=== PATIENT | male | born 1955 | race Caucasian/White ===

== ENCOUNTER 2018-04-27 10:50 | Outpatient (CLI) | payer OTHER | END 2018-04-27 10:59 | disposition home or self-care (01) | LOC: LAB 10:50 | DX: D64.89 Other specified anemias (principal); D68.8 Other specified coagulation defects; E03.8 Other specified hypothyroidism; R07.1 Chest pain on breathing ==

== ENCOUNTER 2018-05-10 08:30 | Inpatient (IN) | payer OTHER ==
[~2018-05-10] VITALS: Ht 175.3 cm; Wt 90.7 kg
[2018-05-10] MEDS ORDERED: GABAPENTIN600 MG PO (10:52)
[2018-05-10] MEDS ORDERED: ETODOLAC600 MG PO (10:52)
[2018-05-10] MEDS ORDERED: GABAPENTIN400 MG PO (10:53)
[2018-05-10] MEDS ORDERED: BICALUTAMIDE50 MG PO (10:53)
[2018-05-10] MEDS ORDERED: ENALAPRIL MALEA20 MG PO (10:54)
[2018-05-10] MEDS ORDERED: SYNTHROID75 MCG PO (10:54)
[2018-05-10] MEDS ORDERED: ZOCOR40 MG PO (10:54)
[2018-05-10] MEDS ORDERED: TRAZODONE HCL50 MG PO (10:55)
[2018-05-10] MEDS ORDERED: HYDROXYZINE PO (10:56)
[2018-05-17] MEDS ORDERED: VISTARIL25 MG PO (09:41)
[2018-05-18] MEDS ORDERED: DOCUSATE SODIU100 MG PO (09:46)
[2018-05-18] MEDS ORDERED: GABAPENTIN800 MG PO (09:46)
[2018-05-18] MEDS ORDERED: AMOX-CLAV 875-1 EACH PO (09:47)
[2018-05-18] MEDS ORDERED: PERCOCET 5-3251 EACH PO (09:48)
[2018-05-18] MEDS ORDERED: CLONAZEPAM1 MG PO (09:48)
== END 2018-05-18 13:35 | disposition home or self-care (01) | DRG 455 ==
LOC: EDUNIT# 08:30 → SURG 05-17 05:50 → O/R 05-17 05:50 → SURG 05-17 13:59
PROVIDERS: Orthopaedic Surgery Orthopaedic Surgery of the Spine
PROC: 0SG0071 Fusion of Lumbar Vertebral Joint with Autologous Tissue Substitute, Posterior Approach, Posterior Column, Open Approach (ICD-10-PCS; 2018-05-17)
PROC: 0ST20ZZ Resection of Lumbar Vertebral Disc, Open Approach (ICD-10-PCS; 2018-05-17)
PROC: 0SG00AJ Fusion of Lumbar Vertebral Joint with Interbody Fusion Device, Posterior Approach, Anterior Column, Open Approach (ICD-10-PCS; 2018-05-17)
PROC: 07DS3ZZ Extraction of Vertebral Bone Marrow, Percutaneous Approach (ICD-10-PCS; 2018-05-17)
PROC: 0SG00A0 Fusion of Lumbar Vertebral Joint with Interbody Fusion Device, Anterior Approach, Anterior Column, Open Approach (ICD-10-PCS; principal; 2018-05-17 13:00)
DX: M47.26 Other spondylosis with radiculopathy, lumbar region (principal); M48.061 Spinal stenosis, lumbar region without neurogenic claudication; M51.16 Intervertebral disc disorders with radiculopathy, lumbar region; I10 Essential (primary) hypertension; E03.8 Other specified hypothyroidism